=== PATIENT | male | born 1950 | race Two or more races ===

== ENCOUNTER 2024-09-19 15:12 | Emergency (ER) | payer MEDICARE, OTHER ==
[~2024-09-19] VITALS: Ht 165.1 cm; Wt 68.2 kg
[2024-09-19 15:29] VITALS: TEMP 98
[2024-09-19] MEDS: OXYMETAZOLINE HCL 0.05% 15 ML NASAL SPRAY NASAL ONE (15:49)
[2024-09-19] MEDS: ACETAMINOPHEN 500 MG TABLET PO ONE (15:49)
[2024-09-19 15:53] LABS: BASOPHILS % (AUTO) 0.5 % (0.0-2.0); EOSINOPHILS % (AUTO) 7.3 % (1.0-6.0); HEMATOCRIT 42.7 % (41-53); HEMOGLOBIN 13.6 g/dL (13.5-17.5); LYMPHOCYTES # (AUTO) 0.8 K/uL (1.0-4.8); LYMPHOCYTES % (AUTO) 16.6 % (22.0-44.0); MEAN CORPUSCULAR HEMOGLOBIN 26.6 pg (26.0-34.0); MEAN CORPUSCULAR HGB CONC 31.9 G/dL (31.0-37.0); MEAN CORPUSCULAR VOLUME 83 fL (80-100); MONOCYTES # (AUTO) 0.4 K/uL (0.1-1.0); MONOCYTES % (AUTO) 8.5 % (2.0-9.0); NEUTROPHILS # (AUTO) 3.2 K/uL (1.8-7.7); NEUTROPHILS % (AUTO) 67.1 % (40.0-70.0); PLATELET COUNT (AUTO) 115 K/uL (150-450); RED BLOOD CELL COUNT(AUTO) 5.12 MIL/uL (4.50-5.90); WHITE BLOOD COUNT (AUTO) 4.7 K/uL (4.5-11.0)
[2024-09-19 16:33] LABS: ANION GAP 6 mmol/L (8-16); CALCIUM, TOTAL 8.2 mg/dL (8.8-10.5); CARBON DIOXIDE 30 mmol/L (22-29); CHLORIDE 107 mmol/L (98-107); CREATININE 0.47 mg/dL (0.60-1.30); GLOMERULAR FILTR. RATE CALC > 60 mL/min (>60); GLUCOSE,RANDOM 118 mg/dL (70-110); POTASSIUM 3.7 mmol/L (3.5-5.1); SODIUM SERUM 143 mmol/L (136-145); UREA NITROGEN, BLOOD 9 mg/dL (7-18)
[2024-09-19 17:05] VITALS: BP 109/63; PULSE 65; RESP 20; O2SAT 98
== END 2024-09-19 17:29 | disposition home or self-care (01) ==
LOC: EMS 15:12
DX: R04.0 Epistaxis (principal); Z91.040 Latex allergy status; Z79.02 Long term (current) use of antithrombotics/antiplatelets; Z85.038 Personal history of other malignant neoplasm of large intestine
CPT/HCPCS: 80048; 85025; 99283